=== PATIENT | male | born 1950 | race Caucasian/White ===

== ENCOUNTER → 2017-09-16 11:43 | Outpatient (REF) | payer BC, SELFPAY ==
[2017-09-16 13:51] LABS: Alanine Aminotransferase 32 U/L (12-78); Albumin Level 3.9 gm/dL (3.4-5.0); Albumin/Globulin Ratio 1.2 (1.1-1.8); Alkaline Phosphatase 78 U/L (46-116); Anion Gap 12.7 mEq/L (5-15); Aspartate Amino Transferase 14 U/L (15-37); Bilirubin,Total 0.3 mg/dL (0.2-1.0); Blood Urea Nitrogen 13 mg/dL (7-18); Calcium 8.9 mg/dL (8.5-10.1); Carbon Dioxide 28 mmol/L (21.0-32.0); Chloride 106 mmol/L (98-107); Chol/HDL Ratio 3.7 (1-3.5); Cholesterol 184 mg/dL (140-200); Creatinine,Serum 1.02 mg/dL (0.70-1.30); Estimated Glomerular Filt Rate 73 ml/min (>60); GFR (African American) 89 ML/MIN (>60); Globulin 3.2 gm/dl (1.3-3.2); Glucose 84 mg/dL (74-106); HDL Cholesterol 50 mg/dL (27-67); LDL Cholesterol 105 mg/dL (0-130); Potassium 4.7 mmoL/L (3.5-5.1); Sodium 142 mmol/L (136-145); Total Protein,Serum 7.1 gm/dL (6.4-8.2); Triglycerides 143 mg/dL (30-200); VLDL Cholesterol 29 mg/dL (0-40)
== END ==
LOC: LAB.CARL 11:43
PROVIDERS: Visit Provider Internal Medicine Adolescent Medicine
DX: E78.2 Mixed hyperlipidemia (principal)
CPT/HCPCS: 80053; 80061

== ENCOUNTER → 2019-02-23 08:03 | Outpatient (CLI) | payer BC, SELFPAY ==
[2019-02-23 14:08] LABS: Anion Gap 11.5 mEq/L (5-15); Blood Urea Nitrogen 16 mg/dL (7-18); Calcium 9.1 mg/dL (8.5-10.1); Carbon Dioxide 29 mmol/L (21.0-32.0); Chloride 104 mmol/L (98-107); Creatinine,Serum 0.89 mg/dL (0.70-1.30); Estimated Glomerular Filt Rate 86 ml/min (>60); GFR (African American) 103 ML/MIN (>60); Glucose 102 mg/dL (74-106); Potassium 4.5 mmoL/L (3.5-5.1); Sodium 140 mmol/L (136-145)
== END ==
PROVIDERS: Visit Provider Internal Medicine Adolescent Medicine
DX: E87.5 Hyperkalemia (principal)
CPT/HCPCS: 36415; 80048

== ENCOUNTER → 2019-05-07 10:12 | Outpatient (CLI) | payer BC, SELFPAY ==
--- NOTE | 2019-05-07 10:54 | CT_ITS ---
PROCEDURE: CT ABDOMEN WO/W CON CLINICAL HISTORY: TRAUMA, STEPPED ON BY COW Left lower anterior rib pain COMPARISON: CT of the thorax 05/07/2019 TECHNIQUE: Axial images obtained with sagittal and coronal reformats. All CT scans at the facility use one or more dose reduction, viz: automated exposure control, ma/kV adjustment per patient size (including targeted exams where dose is matched to indication, i.e. head), or iterative reconstruction technique. 3D reconstruction images were performed. 100 cc Optiray contrast administration was utilized. FINDINGS: Parenchymal densities with associated air bronchograms are seen in both lung bases consistent with pneumonia and or atelectasis. There is no displaced rib fracture. There is mild fatty infiltration of the liver. There has been prior cholecystectomy. There is no evidence of intra-abdominal organ injury or hemoperitoneum. A trace amount of free fluid is seen in the right pelvis. This measures 19 Hounsfield units on image 101 series 9. Calcified hepatic and splenic granulomas are noted. There is colonic diverticulosis without diverticulitis. Scattered atherosclerotic calcifications are seen in the abdominal aorta and iliac vessels. Multilevel degenerative disc disease is seen at the spine and sacroiliac joints. IMPRESSION: No evidence of intra-abdominal organ injury or hemoperitoneum. Parenchymal densities both lung bases with associated air bronchograms. Pneumonia and/or atelectasis should be considered. In the setting of trauma pulmonary contusions would be in the differential diagnosis. Trace amount of nonspecific free fluid in the pelvis. Atherosclerosis. Dictated by: Quintin Angel 05/07/2019 13:05 Electronically signed by Quintin Angel in [place] 05/07/2019 13:05
--- NOTE | 2019-05-07 10:54 | CT_ITS ---
PROCEDURE: CT CHEST WO/W CON CLINCAL INDICATION: TRAUMA, STEPPED ON BY COW COMPARISON: No exams were available for comparison TECHNIQUE: IV Contrast: 75ml Optiray 350 Axial images obtained with sagittal and coronal reformats. All CT scans at the facility use one or more dose reduction, viz: automated exposure control, ma/kV adjustment per patient size (including targeted exams where dose is matched to indication, i.e. head), or iterative reconstruction technique. FINDINGS: HEART AND MEDIASTINAL STRUCTURES: There are coronary arterial calcifications. LUNGS AND PLEURAL SPACES: There are parenchymal densities in both lung bases with associated air bronchograms consistent with infiltrates and/or atelectasis. In the setting of trauma small pulmonary contusions left greater than right would have to be considered. There is no pneumothorax or hemo thorax. There is a calcified granuloma in the left upper lobe. There are scattered nonenlarged mediastinal lymph nodes. BONY STRUCTURES: No acute bony abnormalities apparent. UPPER ABDOMEN: Unremarkable. ADDITIONAL FINDINGS: No other significant abnormalities. IMPRESSION: Bibasilar lung densities consistent with atelectasis and/or infiltrate Dictated by: Quintin Angel 05/07/2019 12:48 Electronically signed by Quintin Angel in [facility] 05/07/2019 12:48
[2019-05-07 11:25] LABS: Basophils % 0.4 % (0.1-2.0); Eosinophils # 0.1 K/mm3 (0.0-0.4); Eosinophils % 0.6 % (0.1-12.0); Hematocrit 43.9 % (42.0-52.0); Hemoglobin 14.1 g/dL (14.1-18.0); Lymphocytes # 0.9 K/mm3 (0.7-4.5); Lymphocytes % 8.1 % (10-50); Mean Corpuscular HGB Conc 32.1 g/dL (31.8-35.4); Mean Corpuscular Hemoglobin 28.2 pg (27.0-31.2); Mean Corpuscular Volume 87.9 fl (80-94); Mean Platelet Volume 7.2 fl (7.4-10.4); Monocytes # 0.5 K/mm3 (0.1-1.0); Monocytes % 4.6 % (1.7-9.3); Neutrophils # 9.3 K/mm3 (1.8-7.8); Neutrophils % 86.2 % (37.0-80.0); Platelet Count 269 K/mm3 (142-424); Red Cell Distribution Width 13.8 % (11.5-17.5); White Blood Count 10.8 K/mm3 (4.8-10.8)
[2019-05-07 11:30] LABS: MANUAL DIFFERENTIAL MANUAL DIFFERENTIAL (MANUAL DIFF)
[2019-05-07 11:57] LABS: Alanine Aminotransferase 33 U/L (12-78); Albumin Level 4.4 g/dl (3.5-5.0); Albumin/Globulin Ratio 1.6 (1.1-1.8); Alkaline Phosphatase 79 U/L (38-126); Anion Gap 12.3 mEq/L (5-15); Aspartate Amino Transferase 33 U/L (17-59); Bilirubin,Total 1.4 mg/dl (0.2-1.3); Blood Urea Nitrogen 11 mg/dl (9-20); Calcium 9.4 mg/dl (8.4-10.2); Carbon Dioxide 26 mmol/L (22.0-30.0); Chloride 99 mmol/L (98-107); Estimated Glomerular Filt Rate 112 ml/min (>60); GFR (African American) 136 ML/MIN (>60); Globulin 2.8 g/dL (1.3-3.2); Glucose 131 mg/dl (74-100); Potassium 4.3 mmoL/L (3.5-5.1); Sodium 133 mmol/L (136-145); Total Protein,Serum 7.2 g/dl (6.3-8.2)
[2019-05-07 12:17] LABS: Eosinophils % 1 % (0-3); Lymphocytes % 7 % (10-50); Monocytes % 6 % (2-9); Neutrophils % 86 % (42-76); Platelet Estimate Normal; RBC Morphology Normal; Total Cells Counted 100
== END ==
PROVIDERS: PCP Internal Medicine Adolescent Medicine; Visit Provider Internal Medicine Adolescent Medicine
DX: T14.90XA Injury, unspecified, initial encounter (principal)
CPT/HCPCS: 36415; 71270; 74170; 80053; 85007; 85025; Q9967

== ENCOUNTER → 2020-06-03 10:50 | Outpatient (CLI) | payer BC, SELFPAY ==
--- NOTE | 2020-06-03 | CA_ITS ---
APPROVED REPORT EXAM: Comprehensive 2D, Doppler, and color-flow Echocardiogram [employer] Tender: Karina Chan RT(R) Ht: 6 ft 0 in Wt: 187lbs BSA: 2.07 BP: 140/72 mmHg Indications: murmur, HTN, palpitations 2D Dimensions LVOT 2.08 cm (M/F) 1.5-2.5 LVEF (Cho's) 63.60 % M: 52 - 72 LV Volume 121.20 mL M: 62 - 150 LV Volume Index 58.55 mL/m2 M: 34 - 74 M-Mode Dimensions RVDd 3.50 cm (0.9-2.6) LA Diam 2.86 cm (1.9-4.0) LVDd 4.64 cm (3.5-5.7) Ao Diam 3.24 cm (2.0-3.7) LVDs 3.42 cm (3.5-5.7) IVSd 0.84 cm (0.6-1.1) PWd 0.87 cm (0.6-1.1) EF (Teich) 51.60% FS 26.30% EDV (Teich) 99.30 mL TAPSE 2.34 (<1.7) ESV (Teich) 48.10 mL LV Diastology E Decel Time 223.00 (160-240 msec) E/A Ratio 0.7 MED E' 10.90 (< 7 cm/sec) E'/MED E' Ratio 4.70 (>14) LAT E' 8.40 (<10 cm/sec) E/LAT E' Ratio 6.10 (>14) Aortic Valve LVOT Max 78.00 (70-110 cm/s) LVOT VTI 18.54 cm AoV Peak Diego. 238.00 (50-130 cm/s) AO Peak GR. 22.60 mmHg AO Mean GR. 11.00 (<5 mmHg) AO VTI 49.28 (18-25 cm) SYEDA (VTI) 1.28 (2.5-4.5 cm2) Mitral Valve MV E Max Diego. 51.00 (40-130 cm/s) MV A Velocity 70.00 (40-130 cm/s) E/A Ratio 0.73 MV Decel. Time 223.00 (160-240 ms) MV PHT 65.00 ms Tricuspid Valve TR P. Velocity 168.00 cm/s RAP Estimate 10.00 mmHg RVSP 21.30 mmHg Left Ventricle Left atrium is mildly enlarged, left ventricle is normal size, mild concentric left ventricular hypertrophy, visually estimated ejection fraction 55% with no regional wall motion abnormality, grade 1 diastolic dysfunction seen without tissue Doppler evidence of raise left atrial pressure. Right Ventricle Right atrium and right ventricle are normal size and contractility. Aortic Valve Aortic valve is thickened and calcified, mean gradient across aortic valve is 11 mmHg, valve area of 1.41 cm, represents mild aortic stenosis, there is mild aortic insufficiency. Mitral Valve Mitral valve leaflets are minimally thickened, there is no mitral stenosis, there is mild mitral regurgitation. Tricuspid Valve Tricuspid grossly normal, there is mild tricuspid regurgitation, tricuspid regurgitation jet velocity is inadequate for calculation of the right ventricular systolic pressure. Pulmonic Valve Pulmonic valve is poorly visualized. Great Vessels Aortic root is normal size. Pericardium No significant pericardial effusion noted. Conclusion 1. Mildly enlarged left atrium, normal left ventricular size, mild concentric left ventricular hypertrophy, visually estimated ejection fraction 55% with no regional wall motion abnormality, grade 1 diastolic dysfunction seen without tissue Doppler evidence of raise left atrial pressure. 2. Thickened and calcified aortic valve with valve area of 1.41 cm, represents mild aortic stenosis, there is mild aortic insufficiency. 3. Mild mitral and tricuspid regurgitation. 4. No significant pericardial effusion noted. Electronically signed by : Tutu Ferrer, 06/03/2020 18:56:05
== END ==
PROVIDERS: PCP Internal Medicine Adolescent Medicine; Visit Provider Nurse Practitioner Family
DX: R00.2 Palpitations (principal); R01.1 Cardiac murmur, unspecified
CPT/HCPCS: 93306

== ENCOUNTER → 2020-12-24 18:18 | Outpatient (CLI) | payer BC, SELFPAY ==
[2020-12-24 19:03] LABS: Chloride 102 mmol/L (98-107); Potassium 4.8 mmoL/L (3.5-5.1); Sodium 139 mmol/L (136-145)
[2020-12-24 19:06] LABS: Alanine Aminotransferase 19 U/L (12-78); Albumin Level 4.3 g/dl (3.5-5.0); Albumin/Globulin Ratio 1.6 (1.1-1.8); Alkaline Phosphatase 77 U/L (38-126); Anion Gap 11.8 mEq/L (5-15); Aspartate Amino Transferase 25 U/L (17-59); Bilirubin,Total 0.6 mg/dl (0.2-1.3); Blood Urea Nitrogen 14 mg/dl (9-20); Calcium 9.2 mg/dl (8.4-10.2); Carbon Dioxide 30 mmol/L (22.0-30.0); Chol/HDL Ratio 3.9 (1-3.5); Cholesterol 237 mg/dl (140-200); Estimated Glomerular Filt Rate 96 ml/min (>60); GFR (African American) 116 ML/MIN (>60); Globulin 2.7 g/dL (1.3-3.2); Glucose 86 mg/dl (74-100); HDL Cholesterol 61 mg/dl (40-60); Triglycerides 163 mg/dl (30-150); VLDL Cholesterol 33 mg/dL (0-40)
[2020-12-24 19:18] LABS: Direct LDL Cholesterol 136.44 mg/dL (100-129)
== END ==
PROVIDERS: Visit Provider Nurse Practitioner Family
DX: E78.2 Mixed hyperlipidemia (principal)
CPT/HCPCS: 80053; 80061

== ENCOUNTER 2023-06-01 11:53 | Outpatient (CLI) | payer MEDICARE, SELFPAY ==
--- NOTE | 2023-06-01 11:57 | XR_ITS ---
FINAL REPORT CLINICAL HISTORY: cough, worsening non smoker FINDINGS: TWO-VIEW CHEST The heart size is normal. The mediastinum is normal. The lungs are clear. There is no pneumothorax. IMPRESSION: No acute cardiopulmonary process. Reviewed, Interpreted and Dictated by Simon Benedict MD Transcribed by Eliza Cruz Authenticated and . [facility]
== END 2023-06-01 23:59 | disposition home or self-care (01) ==
LOC: RAD 11:54
PROVIDERS: PCP Family Medicine; Visit Provider Family Medicine
DX: R05.9 Cough, unspecified (principal)
CPT/HCPCS: 71046

== ENCOUNTER 2023-09-12 09:24 | Emergency (ER) | payer MEDICARE, SELFPAY ==
[2023-09-12] VITALS (10 sets, daily range): BP systolic 124–173; BP diastolic 70–95; PULSE 57–74; RESP 16–22; TEMP 36.7–36.8; O2SAT 96–100; BMI 24.4
--- NOTE | 2023-09-12 09:43 | CT_ITS ---
FINAL REPORT TECHNIQUE: Axial imaging of the lumbar spine was obtained without contrast. Reformatted images were also obtained and reviewed.This study was performed with techniques to keep radiation doses as low as reasonably achievable, (ALARA). Individualized dose reduction techniques using automated exposure control or adjustment of mA and/or kV according to the patient's size were employed. CLINICAL HISTORY: fall, L rib trauma FINDINGS: There is no acute fracture or subluxation. There are mild and moderate degenerative changes with multilevel osteophytes. The vertebra are normal height. There is no malalignment. Facets are properly aligned. Prevertebral soft tissues unremarkable. IMPRESSION: No acute bony abnormality. Reviewed, Interpreted and Dictated by Claus Lamb III, MD Transcribed by Myra Morrissey Authenticated and [facility]
--- NOTE | 2023-09-12 09:43 | CT_ITS ---
FINAL REPORT TECHNIQUE: Axial images were obtained from skull base to the thoracic inlet by computed tomography. Coronal and sagittal reconstruction process performed. This study was performed with techniques to keep radiation doses as low as reasonably achievable (ALARA). Individualized dose reduction techniques using automated exposure control or adjustment of mA and/or kV according to the patient''s size were employed. CLINICAL HISTORY: fall, L rib trauma FINDINGS: There is no acute fracture or subluxation. There are mild degenerative changes noted. The facets are normally aligned. The soft tissues are unremarkable. Limited images of the lung apices are unremarkable. IMPRESSION: No acute fracture. Reviewed, Interpreted and Dictated by Claus Lamb III, MD Transcribed by Myra Morrissey Authenticated and [facility]
--- NOTE | 2023-09-12 09:43 | CT_ITS ---
FINAL REPORT CLINICAL HISTORY: fall, L rib trauma FINDINGS: Axial CT images of the thoracic spine were obtained without contrast. Sagittal and coronal reformatted images were also obtained. This study was performed with techniques to keep radiation doses as low as reasonably achievable (ALARA). Individualized dose reduction techniques using automated exposure control or adjustment of mA and/or kV according to the patient''s size were employed. There is a mild, T4 superior endplate compression fracture which is age-indeterminate. This can be further evaluated with MRI. Small sclerotic foci are seen in T11. Small sclerotic mass not excluded. The vertebral alignment is normal. There is no evidence of significant canal stenosis. No paraspinous soft tissue abnormality is identified. IMPRESSION: Mild T4 superior endplate compression fracture, age-indeterminate. Small sclerotic foci in T11, small sclerotic mass not excluded. These can be further evaluated with MRI. Reviewed, Interpreted and Dictated by Claus Lamb III, MD Transcribed by Myra Morrissey Authenticated and . [facility]
--- NOTE | 2023-09-12 09:43 | CT_ITS ---
FINAL REPORT CLINICAL HISTORY: fall, L rib trauma COMPARISON: None FINDINGS: Thin section axial CT images of the chest were obtained with contrast. 3D reformatted images were also obtained. This study was performed with techniques to keep radiation doses as low as reasonably achievable (ALARA). Individualized dose reduction techniques using automated exposure control or adjustment of mA and/or kV according to the patient's size were employed. There is no evidence of pulmonary embolism. There is no evidence of thoracic aortic aneurysm or dissection. There is no evidence of mediastinal or hilar mass or adenopathy. There is no evidence of pulmonary mass or nodule. No localized inflammatory process is seen within the lungs. A left upper lobe calcified granuloma is present. Bibasilar atelectasis is noted. There is a small left pleural effusion. There are fractures of the eighth, ninth, 10th, and 11th ribs, posterolateral. No pneumothorax is visualized. Limited images of the upper abdomen are unremarkable. IMPRESSION: No evidence of pulmonary embolism. Fractures of the left eighth through 11th ribs, posterolateral, without evidence of pneumothorax. A small left pleural effusion and bibasilar atelectasis are present. Reviewed, Interpreted and Dictated by Claus Lamb III, MD Transcribed by Jen Waite Authenticated and [facility]
--- NOTE | 2023-09-12 09:43 | CT_ITS ---
FINAL REPORT TECHNIQUE: Pre-and postcontrast images of the abdomen and pelvis were performed by computed tomography. Extensive 3-D reconstruction images were performed. A CTA was performed. This study was performed with techniques to keep radiation doses as low as reasonably achievable (ALARA). Individualized dose reduction techniques using automated exposure control or adjustment of mA and/or kV according to the patient's size were employed. CLINICAL HISTORY: fall, L rib trauma COMPARISON: None FINDINGS: ABDOMEN: The lung bases are clear. Precontrast images demonstrate no evidence of nephrolithiasis. No adrenal masses are identified. The liver, spleen and pancreas are unremarkable. The gallbladder has been surgically resected. PELVIS: The appendix is normal in appearance. The prostate is enlarged. There is a left inguinal hernia present containing fat. No pelvic mass or inflammatory changes identified. No free fluid is noted. CTA: The abdominal aorta is proper caliber. Moderate diffuse vascular calcifications of the aorta are noted. There is moderate plaque with narrowing of the origin of the celiac axis. The SMA, celiac axis, and HYACINTH are patent. There is no significant stenosis or calcification. The renal arteries are patent bilaterally. The common iliac arteries are unremarkable bilaterally. The internal and external iliac arteries are also patent, as are the common femoral arteries. IMPRESSION: No significant acute vascular abnormality is noted in the abdomen or pelvis. 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 Note is made of an enlarged prostate. Reviewed, Interpreted and Dictated by Claus Lamb III, MD Transcribed by Jen Waite Authenticated and [facility]
--- NOTE | 2023-09-12 09:43 | CT_ITS ---
FINAL REPORT CLINICAL HISTORY: fall, L rib trauma COMPARISON: None FINDINGS: Axial images of the head were obtained without contrast. Coronal and sagittal reformatted images were also obtained.This study was performed with techniques to keep radiation doses as low as reasonably achievable (ALARA). Individualized dose reduction techniques using automated exposure control or adjustment of mA and/or kV according to the patient's size were employed. There is no evidence of intracranial hemorrhage or mass. The ventricular size is within normal limits. There is no evidence of shift of the midline structures. No abnormal extra axial fluid collection is identified. No skull abnormality is seen on the bone window images. IMPRESSION: No acute intracranial abnormality. Reviewed, Interpreted and Dictated by Claus Lamb III, MD Transcribed by Jen Waite Authenticated and [facility]
--- NOTE | 2023-09-12 09:49 | ED_ITS ---
Discharge Plan Disposition Patient Disposition: Home, Self-Care Condition: Good Prescriptions Prescriptions: New oxycodone 5 mg tablet 5 mg PO Q8H PRN (Reason: pain) Qty: 10 0RF methocarbamol 750 mg tablet 750 mg PO Q8H PRN (Reason: pain) Qty: 20 0RF lidocaine [Lidoderm] 5 % adhesive patch,medicated 1 patch topical DAILY Qty: 15 0RF Rx Instructions: leave on most painful area for up to 12 hrs naproxen 500 mg tablet 500 mg PO Q8H PRN (Reason: pain) Qty: 20 0RF No Action aspirin [Adult Low Dose Aspirin] 81 mg tablet,delayed release (DR/EC) 81 mg PO DAILY Referrals Follow up/Referrals: Gorge Flower MD [Primary Care Provider] - See instructions Activity Restrictions/Add. Instructions Additional Instructions/Restrictions: You were evaluated in the emergency department today. You were found to have multiple rib fractures on the left side, including the 8th through 11th ribs. You also have a compression fracture at T4. This puts you at very high risk for pneumonia and other complications. Please use the incentive spirometer provided to you to ensure that you are taking good deep breaths. 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 Do not drive or operate heavy machinery while taking narcotic pain medication. Please monitor very closely for any worsening symptoms, as it is very important that you come back right away if you start to feel bad. Please follow-up with your primary care provider over the next 3 days for reassessment to make sure that you are still doing well You are found to have an incidentally enlarged prostate, for which you may follow-up closely with your primary care provider. Among this, you were also found to have some narrowing of the blood vessel leading to your stomach, but there is nothing to do about this at this time. Just follow-up with your primary care provider for this as well. You have an abnormal lesion on T11 of your spine, for which the radiologist recommends outpatient MRI to further assess what this is. Your primary care provider can help arrange this. Return to the emergency department right away for any new or worsening symptoms, such as high fevers, difficulty breathing, significant cough, or significant worsening of pain. Clinical Impressions Clinical Impression: Multiple rib fractures, Enlarged prostate, Celiac artery stenosis, Abnormal CT of spine, Compression fracture of T4 vertebra Instructions Patient Instructions: DI for Rib Fracture Print Language Print Language: Azerbaijani Discharge ED Provider: Lili Hoffman General Adult HPI General Chief complaint: Fall Stated complaint: ao 8/3, rib pain Time Seen by Provider: 09/12/23 09:29 Mode of Arrival: Ambulatory Source of Information: Patient Limitations: No Limitations Description of Symptoms (Recalled from ER Triage Doc. 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 He has been having left sided rib pain since then. Today he rates it a 10. History of Present Illness HPI narrative: This patient is a 73-year-old male who denies significant past medical history presenting to the emergency department for evaluation with concern for left rib pain. 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 He did not hit his head or lose consciousness. He is been having left rib pain since, but is acutely worse this morning. He states that he feels that his ribs are moving when he breathes. He states that today, he started having muscle spasms on his left chest and feels like he cannot take a good deep breath in because of the pain. No head injury, loss of consciousness, neck or back pain, abdominal pain, numbness, tingling, or other concerns noted. He denies use of anticoagulation. He was well prior to the fall Related Data Home Medications ?Medication ?Instructions ?Recorded ?Confirmed aspirin 81 mg tablet,delayed 81 mg PO DAILY 08/06/21 09/12/23 release (Adult Low Dose Aspirin) Previous Rx's ?Medication ?Instructions ?Recorded lidocaine 5 % topical patch 1 patch topical DAILY #15 ea 09/12/23 (Lidoderm) methocarbamol 750 mg tablet 750 mg PO Q8H PRN pain #20 tabs 09/12/23 naproxen 500 mg tablet 500 mg PO Q8H PRN pain #20 tabs 09/12/23 oxycodone 5 mg tablet 5 mg PO Q8H PRN pain #10 tabs 09/12/23 Allergies Allergy/AdvReac Type Severity Reaction Status Date / Time No Known Drug Allergies Allergy Unknown Verified 05/30/23 09:53 [NKDA] [facility] Disclaimer: The information contained in this section may have been updated after the patient was seen, as this information can be updated by other users. Medical History Gastroesophageal reflux disease Hyperlipidemia Surgical History No significant past surgical history Family History Other No significant family history Social History Smoking Status: Never smoker alcohol intake: current alcohol intake frequency: a few times a week (beer) current occupational status: employed Travel in the last 8 weeks: None ROS Obtained: Yes All systems reviewed & no additional complaints except as documented Physical Exam General General appearance: alert Comment: Very uncomfortable appearing Head Head exam: atraumatic and normocephalic Eye Eye exam: Present normal appearance, PERRL and EOMI ENT ENT exam: Present normal exam, normal oropharynx, mucous membranes moist and normal external ear exam Neck Neck exam: Present normal inspection, full ROM and trachea midline; Absent tenderness Chest Chest inspection: Present symmetric chest wall rise and tenderness (Tenderness to palpation of the left chest wall. No palpable crepitus or step-offs) Respiratory Respiratory exam: Present normal lung sounds bilaterally and other (Splinted respirations secondary to the pain); Absent respiratory distress, wheezes, stridor or accessory muscle use Cardiovascular Cardiovascular exam: Present regular rate and normal rhythm Abdominal Exam Abdominal exam: Present soft and tenderness (Left upper quadrant); Absent distention, guarding, rebound or rigidity Extremities Exam Extremities exam: Present normal inspection, full ROM and normal capillary refill; Absent tenderness or edema Back Exam Back exam: Present normal inspection and full ROM; Absent tenderness Neurological Exam Neurological exam: Present alert, oriented X3, CN II-XII intact and normal gait; Absent motor sensory deficit Psychiatric Psychiatric exam: Present normal affect and normal mood Skin Skin exam: Present warm and dry Medical Decision Making Medical Records Medical records reviewed: Yes I reviewed the patient's medical records. Lan Inquiry Pt receiving controlled substance: Yes Lan was queried for this patient: Yes Risks and benefits of using a controlled substance: were discussed with pt by me Vital Signs: 09/12/23 09:33 09/12/23 09:54 09/12/23 10:00 Temperature 98.2 F Temperature Source Oral Pulse Rate 65 57 L Pulse Rate [Right Brachial] 74 Respiratory Rate 22 16 Blood Pressure 148/78 H 147/79 H Blood Pressure [Right Arm] 173/95 H Blood Pressure Mean 101 Blood Pressure Mean [Right Arm] 121 Blood Pressure Source Blood Pressure Source [Right Arm] Automatic Cuff Blood Pressure Position Blood Pressure Position [Right Arm] Standing 02 Sat by Pulse Oximetry 100 97 97 Oxygen Delivery Method Room Air Room Air Room Air 09/12/23 10:30 09/12/23 10:55 09/12/23 11:00 Temperature Temperature Source Pulse Rate 57 L 66 66 Pulse Rate [Right Brachial] Respiratory Rate 18 Blood Pressure 148/73 H 150/77 H 136/74 Blood Pressure [Right Arm] Blood Pressure Mean 101 94 Blood Pressure Mean [Right Arm] Blood Pressure Source Blood Pressure Source [Right Arm] Blood Pressure Position Blood Pressure Position [Right Arm] 02 Sat by Pulse Oximetry 98 96 96 Oxygen Delivery Method Room Air 09/12/23 11:30 09/12/23 12:00 09/12/23 12:30 Temperature Temperature Source Pulse Rate 71 65 68 Pulse Rate [Right Brachial] Respiratory Rate 18 Blood Pressure 141/73 H 124/70 133/72 Blood Pressure [Right Arm] Blood Pressure Mean 87 96 Blood Pressure Mean [Right Arm] Blood Pressure Source Blood Pressure Source [Right Arm] Blood Pressure Position Blood Pressure Position [Right Arm] 02 Sat by Pulse Oximetry 96 96 97 Oxygen Delivery Method Room Air Room Air Room Air 09/12/23 13:07 Temperature 98.0 F Temperature Source Oral Pulse Rate 64 Pulse Rate [Right Brachial] Respiratory Rate 18 Blood Pressure 141/78 H Blood Pressure [Right Arm] Blood Pressure Mean Blood Pressure Mean [Right Arm] Blood Pressure Source Automatic Cuff Blood Pressure Source [Right Arm] Blood Pressure Position Sitting Blood Pressure Position [Right Arm] 02 Sat by Pulse Oximetry Oxygen Delivery Method Room Air Lab Data Lab results reviewed: Yes I reviewed the patient's lab results. Lab Results 09/12/23 09:50: WBC 6.7, RBC 5.00, Hgb 15.0, Hct 46.0, MCV 92.0, MCH 30.0, MCHC 32.6, RDW 15.5, Plt Count 254, MPV 7.8, Neut % (Auto) 69.6, Lymph % (Auto) 20.7, Clay % (Auto) 5.6, Eos % (Auto) 2.9, Baso % (Auto) 1.2, Neut # (Auto) 4.7, Lymph # (Auto) 1.4, Clay # (Auto) 0.4, Eos # (Auto) 0.2, Baso # (Auto) 0.1, PT 10.6, INR 0.94, APTT 25.9, Sodium 140, Potassium 4.6, Chloride 105, Carbon Dioxide 30, Anion Gap 9.6, BUN 15, Creatinine 0.70, Estimated Creat Clear 78, Estimated GFR 111, Est GFR ( Amer) 135, Glucose 104 H, Calcium 9.2, Total Bilirubin 0.8, AST 30, ALT 28, Alkaline Phosphatase 80, Total Protein 7.3, Albumin 4.1, Globulin 3.2, Albumin/Globulin Ratio 1.3 09/12/23 09:50 09/12/23 09:50 Orders (Tests/Meds): ED MEDICATIONS Discontinued Medications Generic Name Dose Route Start Last Admin Trade Name Freq PRN Reason Stop Dose Admin Acetaminophen 1,000 mg 09/12/23 09:44 09/12/23 10:00 Acetaminophen 500mg Tab PO 09/12/23 09:45 1,000 mg ONCE ONE Administration Lactated Ringer's 1,000 mls @ 999 mls/hr 09/12/23 09:45 09/12/23 10:00 Lactated Ringer's 1000 Ml Bag IV 09/12/23 10:45 999 mls/hr .Q1H1M ONE Administration Iopamidol 70 ml 09/12/23 10:51 09/12/23 10:52 Iopamidol-370 (76%);100ml Bottle IV 09/12/23 10:52 70 ml ONCE ONE Administration Ketorolac Tromethamine 15 mg 09/12/23 09:44 09/12/23 10:00 Ketorolac 30mg/Ml Vial IV 09/12/23 09:45 15 mg ONCE ONE Administration Lidocaine 1 each 09/12/23 09:44 09/12/23 10:00 Lidocaine 5% Transdermal Patch TP 09/12/23 09:45 1 each ONCE ONE Administration Ondansetron HCl 4 mg 09/12/23 09:44 09/12/23 10:00 Ondansetron 4mg/2ml Vial IV 09/12/23 09:45 4 mg ONCE ONE Administration Oxycodone HCl 5 mg 09/12/23 09:44 09/12/23 10:00 Oxycodone 5mg Immediate Release Tablet PO 10/12/23 09:43 5 mg Q4HP PRN Administration Severe Pain (7-10) Sodium Chloride 50 ml 09/12/23 10:51 09/12/23 10:52 0.9 % Sodium Chloride 50 Ml Vial IV 09/12/23 10:52 50 ml ONCE ONE Administration Sodium Chloride 10 ml 09/12/23 10:51 09/12/23 10:52 Sodium Chloride 0.9% 10ml Syr (Rad Only) IV 10/12/23 10:50 10 ml NEEDED PRN Administration Maintain IV Site ORDERS Category Date Time Status CT angio abdomen pelvis Stat Cat Scan 09/12/23 09:[address] cervical spine wo con Stat Cat Scan 09/12/23 09:[address] head/brain wo con Stat Cat Scan 09/12/23 09:[address] lumbar spine wo con Stat Cat Scan 09/12/23 09:[address] thoracic spine wo con Stat Cat Scan 09/12/23 09:43 Completed CTA Chest [CT angio chest PE protocol] Stat Cat Scan 09/12/23 09:43 Completed Activated Partial Thrombo Time Stat Lab 09/12/23 09:50 Completed CBC w/Auto Diff [Complete Blood Count Auto Diff] Stat Lab 09/12/23 09:50 Completed CMP [Comprehensive Metabolic Panel] Stat Lab 09/12/23 09:50 Completed Prothrombin Time INR Stat Lab 09/12/23 09:50 Completed Medical Decision Narrative: In summary, this patient is a 73-year-old male presenting to the Emergency Department for evaluation of left chest pain after a fall Tuesday, 2 days ago. Differential diagnoses considered include but are not limited to rib fractures, pneumothorax, splenic injury, polytrauma. Ruling out the most morbid conditions drove assessment. On exam, the patient is uncomfortable appearing with splint respiration secondary to pain. He has tenderness to palpation of his left chest wall and left upper quadrant. He has good breath sounds bilaterally and vitals are reassuring on cardiac telemetry with the exception of hypertension in the setting of pain. Workup included CBC, CMP, PT, PTT, CT head, CT spines, and CTA chest, abdomen, and pelvis to evaluate for traumatic injury. He was given a bolus of IV fluids as well as IV Toradol, IV Zofran, oral oxycodone, oral Tylenol, and topical Lidoderm patch for symptomatic improvement. I independently interpreted CT scan prior to the radiologist read and noted multiple rib fractures. Please see their read for final interpretation. Labs were obtained that demonstrated no acute or concerning abnormalities. On reassessment, patient had good improvement after administration of interventions above. He is feeling a lot better. I advised him that he has multiple rib fractures and the safest option would be admission for monitoring to prevent pneumonia or other complications of rib fractures. He he advised that he would like to try going home. Patient was able to pull 2000 cc on incentive spirometry, so I feel confident that if he keeps using this and has adequate pain control at home, he could be successful home candidate. I gave him instructions for use as well as instructions for supportive management and very strict return precautions should he start feeling worse. He stressed understanding agreement. Also advise that he follow-up very closely with a primary care provider for further evaluation and management as well. He was given prescriptions for naproxen, Robaxin, Lidoderm patches, oxycodone. Critical Care Critical Care Time Critical Care Time: No
[2023-09-12] MEDS: ACETAMINOPHEN 500MG TAB 1000 MG PO (10:00)
[2023-09-12] MEDS: KETOROLAC 30MG/ML VIAL 15 MG IV (10:00)
[2023-09-12] MEDS: LIDOCAINE 5% TRANSDERMAL PATCH 1 EACH TP (10:00)
[2023-09-12] MEDS: ONDANSETRON 4MG/2ML VIAL 4 MG IV (10:00)
[2023-09-12] MEDS: LACTATED RINGERS 1000ML 1,000 ML 999 ML IV (10:00)
[2023-09-12] MEDS: OXYCODONE 5MG IMMEDIATE RELEASE TABLET 5 MG PO (10:00)
[2023-09-12 10:04] LABS: Basophils # 0.1 K/mm3 (0-0.2); Basophils % 1.2 % (0.1-2.0); Eosinophils # 0.2 K/mm3 (0.0-0.4); Eosinophils % 2.9 % (0.1-12.0); Lymphocytes # 1.4 K/mm3 (0.7-4.5); Lymphocytes % 20.7 % (10-50); Mean Corpuscular HGB Conc 32.6 g/dL (31.8-35.4); Mean Platelet Volume 7.8 fl (7.4-10.4); Monocytes # 0.4 K/mm3 (0.1-1.0); Monocytes % 5.6 % (1.7-9.3); Neutrophils # 4.7 K/mm3 (1.8-7.8); Neutrophils % 69.6 % (37.0-80.0); Platelet Count 254 K/mm3 (142-424); Red Cell Distribution Width 15.5 % (11.5-17.5); White Blood Count 6.7 K/mm3 (4.8-10.8)
[2023-09-12 10:12] LABS: Activated Partial Thrombo Time 25.9 seconds (22.8-30.6); INR 0.94 (0.9-1.1); Prothrombin Time 10.6 seconds (10.1-12.5)
[2023-09-12 10:13] LABS: Alanine Aminotransferase 28 U/L (12-78); Albumin Level 4.1 g/dl (3.5-5.0); Albumin/Globulin Ratio 1.3 (1.1-1.8); Alkaline Phosphatase 80 U/L (38-126); Anion Gap 9.6 mEq/L (5-15); Aspartate Amino Transferase 30 U/L (17-59); Bilirubin,Total 0.8 mg/dl (0.2-1.3); Blood Urea Nitrogen 15 mg/dl (9-20); Calcium 9.2 mg/dl (8.4-10.2); Carbon Dioxide 30 mmol/L (22.0-30.0); Chloride 105 mmol/L (98-107); Creatinine Clearance Estimated 78 mL/min (50-200); Estimated Glomerular Filt Rate 111 ml/min (>60); GFR (African American) 135 ML/MIN (>60); Globulin 3.2 g/dL (1.3-3.2); Glucose 104 mg/dl (74-100); Potassium 4.6 mmoL/L (3.5-5.1); Sodium 140 mmol/L (136-145); Total Protein,Serum 7.3 g/dl (6.3-8.2)
[2023-09-12] MEDS: IOPAMIDOL-370 (76%);100ML BOTTLE 70 ML IV (10:52)
[2023-09-12] MEDS: SODIUM CHLORIDE 0.9% 10ML SYR (RAD ONLY) 10 ML IV (10:52)
[2023-09-12] MEDS: 0.9 % SODIUM CHLORIDE 50 ML VIAL IV (10:52)
--- NOTE | 2023-09-12 12:05 | PC.NURSE ---
DR HODGSON AT BEDSIDE TO UPDATE PT AND
== END 2023-09-12 13:20 | disposition home or self-care (01) ==
PROVIDERS: Emergency Provider Emergency Medicine; PCP Family Medicine
DX: S22.040A Wedge compression fracture of fourth thoracic vertebra, initial encounter for closed fracture (principal); S22.42XA Multiple fractures of ribs, left side, initial encounter for closed fracture; R93.7 Abnormal findings on diagnostic imaging of other parts of musculoskeletal system; I77.1 Stricture of artery; N40.0 Benign prostatic hyperplasia without lower urinary tract symptoms; V84.4XXA Person injured while boarding or alighting from special agricultural vehicle, initial encounter
CPT/HCPCS: 70450; 71275; 72125; 72128; 72131; 74174; 80053; 85025; 85610; 85730; 96361; 96374; 96375; 99285; J1885; J2405; J7120; Q9967

== ENCOUNTER 2023-09-15 09:34 | Outpatient (CLI) | payer MEDICARE, SELFPAY ==
[2023-09-15 17:27] LABS: Chol/HDL Ratio 4.3 (1-3.5); Cholesterol 197 mg/dl (140-200); HDL Cholesterol 46 mg/dl (40-60); Triglycerides 136 mg/dl (30-150); VLDL Cholesterol 27 mg/dL (0-40)
[2023-09-15 17:37] LABS: Direct LDL Cholesterol 125.85 mg/dL (100-129)
[2023-09-15 18:00] LABS: Prostate Specific Ag, Diagnost 2.42 ng/ml (0.0-4.0); Thyroid Stimulating Hormone 2.12 uIU/mL (0.465-4.68)
== END 2023-09-15 23:59 | disposition home or self-care (01) ==
LOC: LAB.DROPOF 09-16 09:37
PROVIDERS: PCP Nurse Practitioner Family; Visit Provider Nurse Practitioner Family
DX: N40.0 Benign prostatic hyperplasia without lower urinary tract symptoms (principal); E78.5 Hyperlipidemia, unspecified
CPT/HCPCS: 80061; 84153; 84443

== ENCOUNTER 2024-01-09 09:07 | Outpatient (CLI) | payer MEDICARE, SELFPAY ==
--- NOTE | 2024-01-09 09:12 | XR_ITS ---
FINAL REPORT CLINICAL HISTORY: mid back pain COMPARISON: None FINDINGS: Three views of the thoracic spine were obtained. There is no fracture present. Mild rightward curvature is noted. Mild degenerative changes are noted. IMPRESSION: Degenerative changes without acute process. Reviewed, Interpreted and Dictated by Claus Lamb III, MD Transcribed by Joelle Garcia Authenticated and [facility]
--- NOTE | 2024-01-09 09:12 | XR_ITS ---
FINAL REPORT CLINICAL HISTORY: low back pain fell x1 month COMPARISON: None FINDINGS: Three views of the lumbar spine were obtained. There is no evidence of fracture. Mild leftward curvature is noted. The vertebrae are normal in height. There are mild and moderate degenerative changes. Vascular calcifications are noted. IMPRESSION: Degenerative changes without acute process. Reviewed, Interpreted and Dictated by Claus Lamb III, MD Transcribed by Joelle Garcia Authenticated and [facility]
--- NOTE | 2024-01-09 09:12 | XR_ITS ---
FINAL REPORT CLINICAL HISTORY: neck pain COMPARISON: None FINDINGS: Three views of the cervical spine were obtained. There is no fracture present. There is no malalignment. There are mild degenerative changes of the lower cervical spine with multilevel osteophytes. There are probable left neck vascular calcifications. IMPRESSION: Degenerative changes without acute process. Reviewed, Interpreted and Dictated by Claus Lamb III, MD Transcribed by Joelle Garcia Authenticated and . [facility]
== END 2024-01-09 23:59 | disposition home or self-care (01) ==
LOC: RAD 09:08
PROVIDERS: PCP Family Medicine; Visit Provider Family Medicine
DX: M54.2 Cervicalgia (principal); M54.6 Pain in thoracic spine; M54.50 Low back pain, unspecified
CPT/HCPCS: 72040; 72070; 72100

== ENCOUNTER 2024-05-01 08:28 | Outpatient (CLI) | payer MEDICARE, SELFPAY ==
--- NOTE | 2024-05-01 09:11 | XR_ITS ---
FINAL REPORT CLINICAL HISTORY: 4th MCP joint pain post fall 3 months ago COMPARISON: None FINDINGS: AP, lateral and oblique views of the right hand were obtained. There is no prior exam for comparison. There is no acute fracture or dislocation. Mild multijoint degenerative changes are identified. There is a small curved metallic foreign body in the second finger adjacent to the distal tuft. The soft tissues are otherwise unremarkable. IMPRESSION: Mild multijoint degenerative change as described. Small curved metallic foreign body in the second finger adjacent to the distal tuft. Reviewed, Interpreted and Dictated by Darlene Jacobsen MD Transcribed by Jen Waite Authenticated and [facility]
== END 2024-05-01 23:59 | disposition home or self-care (01) ==
PROVIDERS: PCP Family Medicine; Visit Provider Family Medicine
DX: M79.641 Pain in right hand (principal)
CPT/HCPCS: 73130

== ENCOUNTER 2024-05-18 12:08 | Outpatient (CLI) | payer MEDICARE, SELFPAY ==
[2024-05-18 16:38] LABS: Basophils # 0.1 K/mm3 (0-0.2); Basophils % 1.2 % (0.1-2.0); Eosinophils # 0.3 K/mm3 (0.0-0.4); Eosinophils % 5.3 % (0.1-12.0); Hematocrit 43.5 % (42.0-52.0); Hemoglobin 14.4 g/dL (14.1-18.0); Lymphocytes # 1.7 K/mm3 (0.7-4.5); Lymphocytes % 28.5 % (10-50); Mean Corpuscular HGB Conc 33.1 g/dL (31.8-35.4); Mean Corpuscular Hemoglobin 29.1 pg (27.0-31.2); Mean Corpuscular Volume 87.9 fl (80-94); Mean Platelet Volume 9.6 fl (7.4-10.4); Monocytes # 0.6 K/mm3 (0.1-1.0); Monocytes % 10.6 % (1.7-9.3); Neutrophils # 3.3 K/mm3 (1.8-7.8); Neutrophils % 53.9 % (37.0-80.0); Nucleated Red Blood Cells # 0 10^3/uL; Nucleated Red Blood Cells % 0 %; Platelet Count 253 K/mm3 (142-424); Red Blood Count 4.95 M/mm3 (4.60-6.20); Red Cell Distribution Width 13.8 % (11.5-17.5)
[2024-05-18 17:10] LABS: Alanine Aminotransferase 17 U/L (12-78); Albumin Level 4.2 g/dl (3.5-5.0); Albumin/Globulin Ratio 1.4 (1.1-1.8); Alkaline Phosphatase 81 U/L (38-126); Anion Gap 14.8 mEq/L (5-15); Aspartate Amino Transferase 27 U/L (17-59); Bilirubin,Total 0.8 mg/dl (0.2-1.3); Blood Urea Nitrogen 17 mg/dl (9-20); Calcium 9.2 mg/dl (8.4-10.2); Carbon Dioxide 27 mmol/L (22.0-30.0); Chloride 102 mmol/L (98-107); Estimated Glomerular Filt Rate 132 ml/min (>60); GFR (African American) 160 ML/MIN (>60); Glucose 74 mg/dl (74-100); Potassium 4.8 mmoL/L (3.5-5.1); Sodium 139 mmol/L (136-145); Total Protein,Serum 7.2 g/dl (6.3-8.2)
[2024-05-18 17:45] LABS: HIV Combo NEGATIVE (Negative)
[2024-05-18 17:55] LABS: Hepatitis C Ab Qual. W/ RFX NEGATIVE (Negative); Vitamin B12 941 pg/mL (239-931)
[2024-05-18 19:19] LABS: Triiodothryronine (T3) Uptake 34 % (23.5-40.5)
[2024-05-18 19:20] LABS: Free Thyroxine Index 2.2 ug/dL (5.93-13.13); T4 (Thyroxine) 6.5 ug/dl (5.53-11.0)
[2024-05-18 19:34] LABS: Thyroid Stimulating Hormone 1.15 uIU/mL (0.465-4.68)
--- OUTSIDE RECORDS SUMMARY | 2024-05-20 12:10 | XMS_ITS ---
Author Organization Unknown Medications Medication Instructions Effective Dates (start - stop) Status omeprazole 40 MG Delayed Rel ease Oral Capsule [id number]:00:00.000+00:0 0 - Completed - [id number]:00 :00.000+00:00 - Completed meloxicam 15 MG Oral Tablet [id number]:00:00.000+00:00 - Completed atorvastatin 40 MG Oral Tablet 2 [id number]:00:00.000+00:00 - Completed atorvastatin 40 MG Oral Tablet 2 [id number]:00:00.000+00:00 - Completed indomethacin 50 MG Oral Capsule [id number]:00:00.000+00:00 - Completed ketoconazole 20 MG/ML [facility] Sh[facility] [id number]:00:00.000+00:0 0 - Completed atorvastatin 40 MG Oral Tablet 2 [id number]:00:00.000+00:00 - Completed atorvastatin 40 MG Oral Tablet 2 [id number]:00:00.000+00:00 - Completed - [id number]:00 :00.000+00:00 - Completed Patient Care team information Name Category Status Period Participants - - Proposed period not known -
== END 2024-05-18 23:59 | disposition home or self-care (01) ==
LOC: LAB.DROPOF 05-20 12:09
PROVIDERS: PCP Nurse Practitioner Family; Visit Provider Nurse Practitioner Family
DX: G62.9 Polyneuropathy, unspecified (principal); Z11.59 Encounter for screening for other viral diseases; R20.2 Paresthesia of skin
CPT/HCPCS: 80053; 82607; 84436; 84443; 84479; 85025; 86803; 87389